=== PATIENT | female | born 1995 ===

== ENCOUNTER 2018-12-03 17:43 | Inpatient (IN) ==
[2018-12-03] MEDS ORDERED: ONDANSETRON 4 MG/2 ML VIAL ONE ×2 (17:55→20:28)
[2018-12-03] MEDS ORDERED: ONDANSETRON 4 MG/2 ML VIAL IV STA (17:58)
[2018-12-03] MEDS: LACTATED RINGERS 1,000 ML IV SCH ×2 (19:05→23:03)
[2018-12-03] MEDS ORDERED: CLINDAMYCIN 600 MG/4 ML VIAL ONE (19:13)
[2018-12-03] MEDS ORDERED: MORPHINE 4 MG/1 ML VIAL IV PRN (19:49)
[2018-12-03] MEDS ORDERED: SUGAMMADEX 200 MG/2 ML VIAL IV ONE (19:50)
[2018-12-03] MEDS ORDERED: SEVOFLURANE 1 UNIT/15 MINUTE INH ONE (20:28)
[2018-12-03] MEDS ORDERED: PROPOFOL 200 MG/20 ML VIAL IV ONE (20:28)
[2018-12-03] MEDS ORDERED: fentaNYL 100 MCG/2 ML VIAL ONE (20:28)
[2018-12-03] MEDS ORDERED: ROCURONIUM 100 MG/10 ML VIAL IV ONE (20:29)
[2018-12-03] MEDS ORDERED: GLYCOPYRROLATE 0.4 MG/2 ML VIAL ONE (20:29)
[2018-12-03] MEDS ORDERED: PHENYLEPHRINE 1 MG/10 ML SYRINGE IV ONE (20:29)
[2018-12-03] MEDS ORDERED: NEOSTIGMINE 10 MG/10 ML VIAL ONE (20:29)
[2018-12-03] MEDS ORDERED: LACTATED RINGERS 1,000 ML IV ONE (20:29)
[2018-12-03] MEDS ORDERED: SUCCINYLCHOLINE 200 MG/10 ML VIAL ONE (20:29)
[2018-12-04] MEDS: CLINDAMYCIN INJ 900 MG in PREMIX 1 EACH IV SCH ×3 (03:30→18:31)
[2018-12-04 05:01] LABS: Basophils % 0.2 % (0.0-0.8); Hemoglobin 11.6 GM/DL (12.0-16.0); Immature Granulocytes % 0.6 %; Lymphocytes # 0.7 10*3/uL (1.4-4.0); Lymphocytes % 4.1 % (21.3-54.2); Mean Corpuscular HGB Conc 33.1 GM/DL (32-36); Mean Corpuscular Hemoglobin 29 PG (27-34); Mean Corpuscular Volume 88.4 FL (87-102); Mean Platelet Volume 9.8 FL (9.6-12.0); Monocytes # 0.7 10*3/uL (0.11-0.8); Monocytes % 4.1 % (1.7-12.7); Neutrophils # 16.3 10*3/uL (1.4-7.4); Platelet Count 206 T/CUMM (130-400); Red Blood Count 3.96 MC/CUMM (3.8-5.5); Red Cell Distribution Width 13.8 % (9.3-17.3); White Blood Count 17.9 T/CUMM (4-12)
[2018-12-04 05:32] LABS: Anisocytosis Slight; Band Neutrophils 4 % (0-10); Lymphocytes 6 % (20-55); Microcytosis Slight; Segmented Neutrophils 88 % (50-85); Total Cells Counted 100
[2018-12-04 05:34] LABS: Spherocytes Slight; Stomatocytes Few
[2018-12-04 05:35] LABS: Platelet Estimate Normal
[2018-12-04] MEDS: LACTATED RINGERS 1,000 ML IV SCH ×2 (06:59→18:32)
[2018-12-04] MEDS ORDERED: DOCUSATE SODIUM 100 MG CAPSULE PO PRN (10:09)
[2018-12-04] MEDS ORDERED: CLINDAMYCIN INJ 900 MG in PREMIX 1 EACH IV SCH (11:00)
[2018-12-04] MEDS: CIPROFLOXACIN INJ 400 MG in PREMIX 1 EACH IV SCH (13:57)
[2018-12-05] MEDS: LACTATED RINGERS 1,000 ML IV SCH ×2 (02:52→17:37)
[2018-12-05] MEDS: CLINDAMYCIN INJ 900 MG in PREMIX 1 EACH IV SCH ×3 (04:38→19:49)
[2018-12-05] MEDS: CIPROFLOXACIN INJ 400 MG in PREMIX 1 EACH IV SCH ×2 (04:53→13:46)
[2018-12-06] MEDS: SIMETHICONE CHEW 80 MG TABLET PO PRN ×2 (00:18→08:32)
[2018-12-06] MEDS: CIPROFLOXACIN INJ 400 MG in PREMIX 1 EACH IV SCH (01:55)
[2018-12-06] MEDS: CLINDAMYCIN INJ 900 MG in PREMIX 1 EACH IV SCH (03:31)
[2018-12-06 05:41] LABS: Basophils % 0.1 % (0.0-0.8); Eosinophils % 0.3 % (0.00-10.9); Hematocrit 28.4 VOL% (35.7-47.0); Hemoglobin 9.7 GM/DL (12.0-16.0); Immature Granulocytes % 0.6 %; Immature Granulocytes Absolute 0.05 #; Lymphocytes # 0.4 10*3/uL (1.4-4.0); Lymphocytes % 5.3 % (21.3-54.2); Mean Corpuscular HGB Conc 34.2 GM/DL (32-36); Mean Corpuscular Hemoglobin 30 PG (27-34); Mean Corpuscular Volume 88.8 FL (87-102); Mean Platelet Volume 9.9 FL (9.6-12.0); Monocytes # 0.5 10*3/uL (0.11-0.8); Monocytes % 6.3 % (1.7-12.7); Neutrophils # 6.8 10*3/uL (1.4-7.4); Neutrophils % 87.4 % (38.7-73.9); Platelet Count 157 T/CUMM (130-400); Red Cell Distribution Width 13.5 % (9.3-17.3); White Blood Count 7.8 T/CUMM (4-12)
[2018-12-06 08:56] VITALS: BP 104/60
== END 2018-12-06 11:25 | disposition home or self-care (01) | DRG 817 ==
LOC: EDUNIT# → EDBD → N.ED 17:43 → N.EDINP 18:45 → N.OB 19:00
PROVIDERS: ADMIT Surgery; ATTEND Surgery

== ENCOUNTER 2019-06-08 00:26 | Inpatient (IN) ==
[2019-06-08] MEDS ORDERED: ONDANSETRON 4 MG/2 ML VIAL IV PRN (01:12)
[2019-06-08] MEDS ORDERED: OXYTOCIN/LR 20 UNIT/1,000 ML BAG IV PRN (01:12)
[2019-06-08] MEDS ORDERED: MEPERIDINE 50 MG/1 ML VIAL IV PRN (01:12)
[2019-06-08 01:54] LABS: Basophils % 0.4 % (0.0-0.8); Eosinophils # 0.1 10*3/uL (0.0-0.87); Hematocrit 30.5 VOL% (35.7-47.0); Hemoglobin 9.7 GM/DL (12.0-16.0); Immature Granulocytes % 1.6 %; Immature Granulocytes Absolute 0.14 #; Lymphocytes # 1.8 10*3/uL (1.4-4.0); Lymphocytes % 19.7 % (21.3-54.2); Mean Corpuscular HGB Conc 31.8 GM/DL (32-36); Mean Corpuscular Volume 83.8 FL (87-102); Mean Platelet Volume 10.9 FL (9.6-12.0); Monocytes % 7.5 % (1.7-12.7); NRBC # 0.02 10*3/uL; Neutrophils % 69.8 % (38.7-73.9); Platelet Count 263 T/CUMM (130-400); Red Blood Count 3.64 MC/CUMM (3.8-5.5); Red Cell Distribution Width 14.6 % (9.3-17.3); White Blood Count 8.9 T/CUMM (4-12)
[2019-06-08 02:10] LABS: Albumin 2.6 G/DL (3.4-5.0); Bilirubin,Total 0.5 MG/DL (0.2-1.0); Calcium 8.4 MG/DL (8.5-10.1); Osmolality,Calculated 276.4 MOS/KG (273-304); Total Protein 6.8 G/DL (6.4-8.3)
[2019-06-08] MEDS ORDERED: CLINDAMYCIN INJ 900 MG in PREMIX 1 EACH IV SCH (03:00)
[2019-06-08] MEDS: LACTATED RINGERS 1,000 ML IV SCH ×2 (03:05→07:21)
[2019-06-08] MEDS ORDERED: NALOXONE 0.4 MG/ML VIAL IV PRN (05:14)
[2019-06-08] MEDS ORDERED: hydrOXYzine HCL 25 MG/1 ML VIAL IM PRN (05:14)
[2019-06-08] MEDS ORDERED: diphenhydrAMINE 50 MG/1 ML VIAL IV PRN ×2 (05:14)
[2019-06-08] MEDS ORDERED: PROMETHAZINE 25 MG/1 ML VIAL IM ONE (05:14)
[2019-06-08] MEDS ORDERED: CITRIC ACID/SODIUM CITRATE 30 ML UDCUP PO PRN (05:15)
[2019-06-08] MEDS ORDERED: FAMOTIDINE 20 MG/2 ML VIAL IV PRN (05:16)
[2019-06-08] MEDS ORDERED: ePHEDrine 50 MG/ML AMP IV PRN (05:17)
[2019-06-08] MEDS ORDERED: fentaNYL 2 MCG/ROPIV 0.2% EPID 100 ML EPIDURAL SCH (05:30)
[2019-06-08 09:11] LABS: Apearance,Urine CLEAR (Clear); Bilirubin,Urine Negative (Negative); Blood, Urine Negative (Negative); Glucose,Urine (UA) Negative (Negative); Hyaline Casts,Urine 1 /LPF (0-3); Ketones,Urine Negative (Negative); Mucus,Urine Occasional /LPF (Occasional); Nitrite,Urine Negative (Negative); Protein,Urine Negative; Urine Color Yellow (Yellow); Urine Specific Gravity 1.015 (1.001-1.035); Urine Urobilinogen < 2.0 EU/DL (0.2-1.0); WBC,Urine <1 /HPF (0-6)
[2019-06-08] MEDS ORDERED: miSOPROStoL 200 MCG TABLET ONE (12:44)
[2019-06-08] MEDS ORDERED: METHYLERGONOVINE 0.2 MG/1 ML AMP ONE (12:46)
[2019-06-08] MEDS ORDERED: miSOPROStoL 200 MCG TABLET RECTAL ONE (13:50)
[2019-06-08 13:56] LABS: Cord Arterial Blood HCO3 18.5 MMOL/L
[2019-06-08 13:59] LABS: Cord Venous Blood HCO3 21.3 MMOL/L; Cord Venous Blood PCO2 42.4 MMHG; Cord Venous Blood PO2 43.6
[2019-06-08] MEDS ORDERED: OXYTOCIN/LR 30 UNIT/1,000 ML BAG IV ONE (14:03)
[2019-06-08] MEDS ORDERED: WITCH HAZEL PADS 100/JAR TOP PRN (16:58)
[2019-06-08] MEDS ORDERED: IBUPROFEN 800 MG TABLET PO PRN (16:58)
[2019-06-08] MEDS ORDERED: BISACODYL 10 MG SUPP RECTAL PRN (16:58)
[2019-06-08] MEDS ORDERED: MEASLES/MUMPS/RUBELLA VACCINE 0.5 ML VIAL SUBCUT ONE (16:58)
[2019-06-08] MEDS ORDERED: LANOLIN 50% CREAM 0.3 OZ TUBE TOP PRN (16:58)
[2019-06-08] MEDS ORDERED: DIPH/TET/ACEL PERT BOOSTER VACCINE 0.5 ML VIAL IM ONE (16:58)
[2019-06-08] MEDS ORDERED: HYDROCORTISONE 2.5% RECTAL CREAM 30 GM TUBE TOP PRN (16:58)
[2019-06-08] MEDS ORDERED: oxyCODONE/ACETAMINOPHEN 5-325 MG TABLET PO PRN ×2 (16:58)
[2019-06-08] MEDS ORDERED: BENZOCAINE 20%/MENTHOL 0.5% SPRAY 56 GM CAN TOP PRN (16:58)
[2019-06-08] MEDS ORDERED: ACETAMINOPHEN 325 MG TABLET PO PRN (16:58)
[2019-06-08] MEDS ORDERED: RHO(D) IMMUNE GLOBULIN 300 MCG SYRINGE IM ONE (16:58)
[2019-06-08] MEDS: DOCUSATE SODIUM 100 MG CAPSULE PO SCH (21:16)
[2019-06-09 07:44] LABS: Basophils % 0.1 % (0.0-0.8); Eosinophils # 0.1 10*3/uL (0.0-0.87); Eosinophils % 0.8 % (0.00-10.9); Hematocrit 28.1 VOL% (35.7-47.0); Hemoglobin 8.9 GM/DL (12.0-16.0); Immature Granulocytes % 0.8 %; Immature Granulocytes Absolute 0.07 #; Lymphocytes # 1.6 10*3/uL (1.4-4.0); Lymphocytes % 17.5 % (21.3-54.2); Mean Corpuscular HGB Conc 31.7 GM/DL (32-36); Mean Corpuscular Volume 83.9 FL (87-102); Mean Platelet Volume 10.1 FL (9.6-12.0); Neutrophils % 74.8 % (38.7-73.9); Platelet Count 205 T/CUMM (130-400); Red Blood Count 3.35 MC/CUMM (3.8-5.5); Red Cell Distribution Width 14.6 % (9.3-17.3)
[2019-06-09] MEDS ORDERED: INFLUENZA VIRUS VACCINE 0.5 ML SYRINGE IM ONE (09:00)
[2019-06-09] MEDS: FERROUS SULFATE 325 MG TABLET PO SCH (10:16)
[2019-06-09] MEDS: DOCUSATE SODIUM 100 MG CAPSULE PO SCH ×2 (10:16→21:30)
[2019-06-10 08:57] VITALS: BP 111/52
[2019-06-10] MEDS ORDERED: INFLUENZA VIRUS VACCINE 0.5 ML SYRINGE IM ONE (09:12)
[2019-06-10] MEDS: FERROUS SULFATE 325 MG TABLET PO SCH (09:44)
[2019-06-10] MEDS: DOCUSATE SODIUM 100 MG CAPSULE PO SCH (09:44)
== END 2019-06-10 13:30 | disposition home or self-care (01) | DRG 807 ==
LOC: N.LDOUT 00:26 → N.LD 00:29 → N.OB 16:36
PROVIDERS: ADMIT Obstetrics & Gynecology; ATTEND Obstetrics & Gynecology